=== PATIENT | female | born 1930 | race Asian ===

== ENCOUNTER 2019-05-10 14:27 | Emergency (ER) | payer OTHER ==
[~2019-05-10] VITALS: Ht 172.7 cm; Wt 68.0 kg
[2019-05-10 16:10] VITALS: BP 124/62; TEMP 97.3
== END 2019-05-10 16:12 | disposition home or self-care (01) ==
LOC: ED 14:27
DX: S40.012A Contusion of left shoulder, initial encounter (principal); S60.212A Contusion of left wrist, initial encounter; S30.0XXA Contusion of lower back and pelvis, initial encounter; W18.2XXA Fall in (into) shower or empty bathtub, initial encounter; Y92.091 Bathroom in other non-institutional residence as the place of occurrence of the external cause
CPT/HCPCS: 99283